=== PATIENT | male | born 1965 | race Caucasian/White ===

== ENCOUNTER 2017-02-26 14:18 | Emergency (ER) | payer BC, OTHER ==
[~2017-02-26] VITALS: Ht 185.4 cm; Wt 86.0 kg
[~2017-02-26 14:18] MED LIST: AMT/50 PO; COEN30CA6 PO; GLUC10007 PO; MULT-506 PO
[2017-02-26 14:20] VITALS: TEMP 36.5; Ht 185.4 cm; Wt 86.0 kg
[2017-02-26] MEDS ORDERED: OMEG10007 PO (14:37)
[2017-02-26] MEDS ORDERED: GINK40TA3 PO (14:37)
[2017-02-26] MEDS ORDERED: COEN1CAP17 PO (14:37)
[2017-02-26] MEDS ORDERED: OXYMETAZOLINE HCL 0.05% NA SPR 15 ML BTL ONE (14:44)
[2017-02-26 15:08] LABS: BASO % 0.8 %; BASO ABS # 0.04 K/uL (0-0.2); COMPLETE YES; EOS % 1.9 %; HEMATOCRIT 42.2 % (42-52); IG% 0.2 %; LYMPH % 27.4 %; LYMPH ABS # 1.43 K/uL (1.2-3.4); MEAN CELL VOLUME 87.4 fL (80-100); MEAN CORPUSCULAR HEMOGLOBIN 30.8 pg (25-34); MEAN CORPUSCULAR HGB CONC 35.3 g/dl (32-36); MEAN PLATELET VOLUME 11.4 fL (7.4-10.4); MONO % 7.7 %; PLATELET COUNT 162 K/uL (130-400); RED BLOOD COUNT 4.83 M/uL (4.7-6.1); WHITE BLOOD COUNT 5.21 K/uL (4.8-10.8)
[2017-02-26 15:29] LABS: BUN/CREATININE RATIO 20.6 (10-20); CALCIUM 9.1 mg/dl (8.5-10.1); CREATININE 0.94 mg/dl (0.60-1.40); POTASSIUM 4.3 mmol/L (3.5-5.1)
[2017-02-26 16:22] VITALS: BP 135/87; PULSE 59; O2SAT 98
--- NOTE | 2017-02-26 17:19 | EMERGENCY ROOM VISIT NOTE ---
History Report prepared by Mariza: Tamica Ríos Under the Supervision of: Dr. Pebbles White M.D. First contact with patient: 14:34 Chief Complaint: NOSE BLEED (MINOR) Stated Complaint: NOSE BLEED History of Present Illness The patient is a 51 year old male who presents to the Emergency Room with complaints of intermittent epistaxis for the past 48 hours. When the nose bleed starts, it bleeds for about 2 hours at a time. He has been passing blood clots through his mouth. He went to a walk-in clinic where they removed a clot the size of a 50 cent piece. He has had several of those over the past 2 days. The doctor said that it might be a posterior bleed. He takes baby aspirin 3 days a week. He is not on hypertension medications. Source of History: patient Onset: 48 hours ago Position: nose Quality: other (bleed) Timing: intermittent Review of Systems See HPI for pertinent positives & negatives. A total of 10 systems reviewed and were otherwise negative. Past Medical & Surgical denies Family History No pertinent family history reported. Social History Smoking Status: Never Smoker Alcohol Use: occasionally Drug Use: none Marital Status: Housing Status: lives with family Occupation Status: employed Current/Historical Medications Scheduled Amitriptyline HCl (Amitriptyline HCl), 50 MG PO HS Coenzyme Q10 (Ubidecarenone) (Co Q 10), 100 MG PO 3XWK Fish Oil (Shelley-3), 1 CAP PO 3XWK Ginkgo Biloba (Ginkoba), 1 TAB PO 3XWK Glucosamine Sulfate (Glucosamine), Unknown Dose PO DAILY Multivitamin (Multivitamin), 1 TAB PO 3XWK Allergies Coded Allergies: No Known Allergies (Unverified , 02/26/17) Physical Exam Vital Signs Date Time Temp Pulse Resp B/P Pulse Ox O2 Delivery O2 Flow Rate FiO2 02/26/17 16:22 59 16 135/87 98 02/26/17 14:20 36.5 66 18 154/89 99 Room Air Physical Exam Vital signs reviewed. General: Well-appearing, in no significant distress. HEENT: No scleral icterus, PERRLA, neck supple. Atraumatic. Clot coming from the right naris. No posterior oropharyngeal blood. Cardiovascular: Regular rate and rhythm, no extra sounds. Pulmonary: Clear to auscultation bilaterally, normal work of breathing. Abdomen: Soft, nontender, nondistended, positive bowel sounds. Musculoskeletal: Atraumatic, no peripheral edema. Neurologic: Patient awake alert and oriented x 3, full strength in all 4 extremities. Cranial nerves 2 through 12 grossly intact. Skin: Warm, dry, no rash Medical Decision & Procedures Laboratory Results 02/26/17 14:58 Red Blood Count 4.83, Mean Corpuscular Volume 87.4, Mean Corpuscular Hemoglobin 30.8, Mean Corpuscular Hemoglobin Concent 35.3, Mean Platelet Volume 11.4, Neutrophils (%) (Auto) 62.0, Lymphocytes (%) (Auto) 27.4, Monocytes (%) (Auto) 7.7, Eosinophils (%) (Auto) 1.9, Basophils (%) (Auto) 0.8, Neutrophils # (Auto) 3.23, Lymphocytes # (Auto) 1.43, Monocytes # (Auto) 0.40, Eosinophils # (Auto) 0.10, Basophils # (Auto) 0.04 02/26/17 14:58 Test 02/26/17 14:58 White Blood Count 5.21 K/uL (4.8-10.8) Red Blood Count 4.83 M/uL (4.7-6.1) Hemoglobin 14.9 g/dL (14.0-18.0) Hematocrit 42.2 % (42-52) Mean Corpuscular Volume 87.4 fL (80-100) Mean Corpuscular Hemoglobin 30.8 pg (25-34) Mean Corpuscular Hemoglobin Concent 35.3 g/dl (32-36) Platelet Count 162 K/uL (130-400) Mean Platelet Volume 11.4 fL (7.4-10.4) Neutrophils (%) (Auto) 62.0 % Lymphocytes (%) (Auto) 27.4 % Monocytes (%) (Auto) 7.7 % Eosinophils (%) (Auto) 1.9 % Basophils (%) (Auto) 0.8 % Neutrophils # (Auto) 3.23 K/uL (1.4-6.5) Lymphocytes # (Auto) 1.43 K/uL (1.2-3.4) Monocytes # (Auto) 0.40 K/uL (0.11-0.59) Eosinophils # (Auto) 0.10 K/uL (0-0.5) Basophils # (Auto) 0.04 K/uL (0-0.2) RDW Standard Deviation 40.6 fL (36.4-46.3) RDW Coefficient of Variation 12.6 % (11.5-14.5) Immature Granulocyte % (Auto) 0.2 % Immature Granulocyte # (Auto) 0.01 K/uL (0.00-0.02) Anion Gap 5.0 mmol/L (3-11) Est Creatinine Clear Calc Drug Dose 106.2 ml/min Estimated GFR () 109.1 Estimated GFR (Non- 94.2 BUN/Creatinine Ratio 20.6 (10-20) Calcium Level 9.1 mg/dl (8.5-10.1) Laboratory results per my review. ED Course 1436: Past medical records reviewed. The patient was evaluated in room C9. A complete history and physical examination was performed. 1444: Afrin 0.05% Nasal [place] 75 sprays. 1610: Upon reevaluation, the patient appeared to have improvement of his symptoms. I discussed findings with him. He verbalized agreement of the treatment plan. He was discharged home. Medical Decision Differential diagnosis: Etiologies such as anterior epistaxis, coagulopathy, traumatic injury, fracture , septal hematoma, posterior epistaxis as well as other pathologies were entertained. This patient was evaluated and appeared to be in no significant distress. Patient did seem to be somewhat anxious about the situation. He is noted to be slightly hypertensive. Patient was asked to gently blow his nose. Afrin nasal spray was applied with a clamp. After 30-40 minutes, the Clamp was removed. The bleeding did subside. Patient's laboratory work is fairly unrevealing. CBC shows a normal H&H as well as platelet count. Patient was informed of the findings. He was given instructions regarding epistaxis. He was discharged with a nasal clamp and Afrin nasal spray. He was advised to stop taking the baby aspirin. He will follow-up with his physician this week for reevaluation. He will return to the ER for worsening of symptoms or any medical concerns. Impression Primary Impression: Epistaxis Scribe Attestation The scribe's documentation has been prepared under my direction and personally reviewed by me in its entirety. I confirm that the note above accurately reflects all work, treatment, procedures, and medical decision making performed by me. Departure Information Dispostion Home / Self-Care Referrals Oscar Pacheco D.O. (PCP) Forms HOME CARE DOCUMENTATION FORM, IMPORTANT VISIT INFORMATION, WORK / SCHOOL INSTRUCTIONS Patient Instructions My Melba Severino [facility], Nosebleeds - [facility] Additional Instructions Diagnosis: Epistaxis Stop your aspirin. Avoid scratching, rubbing, picking, or blowing your nose. The germ drier your nasal passages the more likely they are to bleed. The following two products are available [id number] at most drug stores/pharmacies: [place] nasal spray or similar generic saline spray to keep the nose moist 3 to 4 times a day or Apply [place] gel 2-3 times daily to the nostrils to keep them moist. If bleeding recurs , gently blowing your nose and use 3-4 sprays of Afrin in each nostril. Apply direct pressure for an uninterrupted 20 minutes. On and off pressure is much less effective because it will disturb the clots that are forming. If the bleeding is still a problem after 20 minutes or is so heavy despite the pressure return to the emergency department. Follow-up with your primary care physician in 2 to 3 days for a recheck of your current condition if problems persist.
== END 2017-02-26 16:23 | disposition home or self-care (01) ==
LOC: C.EDB 14:19 → C.EDC 16:23
DX: R04.0 Epistaxis (principal)

== ENCOUNTER 2025-11-10 09:21 | Observation (INO) ==
--- NOTE | 2025-10-09 10:06 | PAT Medication Instructions ---
Medication Instructions Date of Service October 09, 2025 Home Medications Medication Instructions Recorded betamethasone valerate 0.1 % 1 applic topical BID PRN erythema 07/29/25 topical ointment #15 grams turmeric 100 mg-gayatri 150 mg-olive 50 mg-oreg 150 mg-capryl capsule 1 cap PO QPM hydrocortisone 2.5 % topical cream 1 applic topical BID PRN rosuvastatin 5 mg tablet (Crestor) 5 mg PO HS coenzyme Q10 100 mg capsule (Co Q-10) 100 mg PO HS feverfew 380 mg capsule 380 mg PO HS ginkgo biloba 120 mg tablet 120 mg PO HS glucosamine sulf dipot chlr,msm,chond 550 mg-C 30 mg-kike 1 mg capsule (Glucosamine Chondroitin) 1 cap PO QPM multivitamin 1 tab PO HS omega-3 fatty acids 1,200 mg PO QPM betamethasone valerate 0.1 % topical ointment 1 applic topical BID PRN Fruit Supplement 1 dose PO HS Vegetable Supplement 1 tab PO HS Zn-pyg lwrp-kxatgf-nxu palmet capsule 1 cap PO HS magnesium glycinate 400 mg PO HS STOP taking 2 weeks before surgery (or as soon as possible if surgery is within 2 weeks) turmeric 100 mg-gayatri 150 mg-olive 50 mg-oreg 150 mg-capryl capsule 1 cap PO QPM coenzyme Q10 100 mg capsule (Co Q-10) 100 mg PO HS feverfew 380 mg capsule 380 mg PO HS ginkgo biloba 120 mg tablet 120 mg PO HS glucosamine sulf dipot chlr,msm,chond 550 mg-C 30 mg-kike 1 mg capsule (Glucosamine Chondroitin) 1 cap PO QPM omega-3 fatty acids 1,200 mg PO QPM Fruit Supplement 1 dose PO HS Vegetable Supplement 1 tab PO HS Zn-pyg mqov-bwmroe-ttq palmet capsule 1 cap PO HS STOP taking 24 hours before surgery hydrocortisone 2.5 % topical cream 1 applic topical BID PRN betamethasone valerate 0.1 % topical ointment 1 applic topical BID PRN Take evening before surgery rosuvastatin 5 mg tablet (Crestor) 5 mg PO HS multivitamin 1 tab PO HS magnesium glycinate 400 mg PO HS Other Notes NOTHING TO EAT OR DRINK AFTER MIDNIGHT. If you have any questions please call us at [phone] or [phone] or [phone] or [phone]
--- NOTE | 2025-10-20 13:56 | Anesthesiology Consultation ---
Date of Service October 20, 2025 Assessment & Plan (1) Encounter for pre-operative examination: - Infectious disease screening: Per assessment on 10/20/25- No known recent infectious disease contacts or current infectious disease symptoms. - Awaiting upcoming sleep study report ([facility], 10/27). Patient is otherwise acceptable risk for surgery. Chart Review Chart Review: Patient seen in Pre Admission Testing Teaching & Discussion Pre-Anesthesia Teaching/Discussion Notes: Instructed NPO after midnight before surgery,except medications with 15 cc of water. Medication instructions provided according to the PAT guidelines. History Surgery Operation Date: 11/10/25 07:15 Proposed Procedures p Robotic Assisted Bilateral Total Knee Arthroplasty - Nabor Lorenzana, Height/Weight Height: 6 ft 1 in Weight: 85 kg Allergies Allergy/AdvReac Type Severity Reaction Status Date / Time No Known Allergies Allergy Verified 10/08/25 11:51 Medications Home Medications Medication Instructions Recorded Confirmed Last Taken turmeric 100 mg-gayatri 150 1 cap PO QPM 10/17/22 10/08/25 Unknown mg-olive 50 mg-oreg 150 mg-capryl capsule hydrocortisone 2.5 % topical cream 1 applic topical BID PRN Skin 10/19/23 10/08/25 Unknown Irritation rosuvastatin 5 mg tablet (Crestor) 5 mg PO HS 10/19/23 10/08/25 Unknown coenzyme Q10 100 mg capsule (Co 100 mg PO HS 03/04/24 10/08/25 Unknown Q-10) feverfew 380 mg capsule 380 mg PO HS 03/04/24 10/08/25 Unknown ginkgo biloba 120 mg tablet 120 mg PO HS 03/04/24 10/08/25 Unknown glucosamine sulf dipot 1 cap PO QPM 03/04/24 10/08/25 Unknown chlr,msm,chond 550 mg-C 30 mg-kike 1 mg capsule (Glucosamine Chondroitin) multivitamin 1 tab PO HS 03/04/24 10/08/25 Unknown omega-3 fatty acids 1,200 mg PO QPM 03/04/24 10/08/25 Unknown betamethasone valerate 0.1 % 1 applic topical BID PRN erythema 07/29/25 10/08/25 Unknown topical ointment #15 grams Fruit Supplement 1 dose PO HS 10/08/25 10/08/25 Unknown Vegetable Supplement 1 tab PO HS 10/08/25 10/08/25 Unknown Zn-pyg mrbo-vwahsm-ywp palmet 1 cap PO HS 10/08/25 10/08/25 Unknown capsule magnesium glycinate 400 mg PO HS 10/08/25 10/08/25 Unknown Past Medical History Medical History (Updated 10/20/25 @ 14:38 by Lotus Jenkins) Anxiety Borderline hypertension Monitors, no meds Cardiac murmur No murmur noted at PCP visit 02/25/25 and PAT visit 10/20/25 History of abnormal electrocardiogram 2013 [facility] EKG with ST elevation with early repolarization, pericarditis or injury (ST elevation noted on remote 2009 [facility] ER reports- 2009 stress test unremarkable) History of skin cancer s/p excision, "no issues" Hyperlipidemia Controlled with medication Insomnia Osteoarthritis Suspected sleep apnea [facility] Sleep study scheduled 10/27/25 Exercise / Class Metabolic Activity II 4-5 Yardwork/Stairs/Walk up hill (one FS: No CP, no SOB) Past Family History Family History Other No family history of adverse response to anesthesia Past Surgical History Surgical History Hx of anterior cruciate ligament tear reconstruction Right knee Hx of colonoscopy Nausea after anesthesia Severe PONV with ACL surgery S/P left knee arthroscopy (2022) [place] teeth extracted Past Anesthesia History No Hx of Anesthesia Complications and No Family Hx of Anesthesia Complications History of PONV History of PONV and Hx of Motion Sickness (Situational) Social History Smoking Status: Never smoker Do You Dip or Chew Tobacco: No Hx Alcohol Use: Yes alcohol intake frequency: other (Socially- "light drinker") Hx Substance Use: No substance use type: does not use Review of Systems Patient denies chest pain, shortness of breath, dyspnea on exertion, fever, chills, cough, wheezing, palpitations. Physical Exam Vital Signs BP 115/76 P 66 TEMP 98.5 SP02 95%RA RESP 16 Physical Full cervical extension range of motion. Full TMJ range of motion. TMD 3 finger breaths Mallampati Score III Dentition: intact, + caps/crowns Lungs: clear throughout to auscultation Cardiac: regular rate and rhythm, no murmurs noted Spine: normal Carotid arteries: negative bruit Extremities: no LE edema Lab Results Anesthesia Preop Results Results Anesthesia Widget: WBC 7.65 K/ul (4.8-10.8) 10/20/25 Hgb 14.7 g/dL (14.0-18.0) 10/20/25 Hct 43.6 % (42.0-52.0) 10/20/25 Plt 182 K/uL (130-400) 10/20/25 Na 138 mmol/L (136-145) 10/20/25 K 4.2 mmol/L (3.5-5.1) 10/20/25 Cl 102 mmol/L (98-107) 10/20/25 CO2 30 mmol/L (21-32) 10/20/25 BUN 21 mg/dl (6-23) 10/20/25 Creat 0.98 mg/dl (0.6-1.4) 10/20/25 Glucose Level 98 mg/dl (70-99(Fasting)) 10/20/25 PT 10.8 Seconds (9.0-12.0) 10/20/25 PTT 26 Seconds (21-31) 10/20/25 INR 1.0 (0.9-1.1) 10/20/25 Blood Type A Positive 10/20/25 Antibody Screen NEGATIVE 10/20/25 Testing Electrocardiogram Date: 10/20/25 NSR at 60bpm. RSR or QR pattern in V1 suggests RVCD. Minimal voltage criteria for LVH, may be normal variant (Sokolow-Guevara). Septal infarct, age undetermined. No significant change compared to 11/09/2014 per block cutter comparison. Chest X-Ray Date: 10/20/25 FINDINGS: Cardiomediastinal and hilar silhouettes are within normal limits. No pneumothorax, pleural effusion, airspace consolidation or pulmonary edema. Mild levoscoliosis of the lower thoracic spine. The bones appear grossly intact. IMPRESSION: No acute process.
--- NOTE | 2025-11-06 07:43 | History & Physical Report ---
Date of Service November 06, 2025 Assessment & Plan (1) Degenerative arthritis of knee, bilateral: We will proceed with bilateral total knee arthroplasties. Postoperatively, he will be started on aspirin for DVT prophylaxis and kept overnight in the hospital for postop medical management. He plans to use the energy physical therapy after discharge. History of Present Illness Chief Complaint: Osteoarthritis bilateral knees. Primary Care Provider: Oscar PachecoDO De Los Santos is a pleasant 59-year-old male who has been dealing with chronic worsening bilateral knee pain. He had right ACL reconstruction done about 20 years ago. He has been receiving injections of his knees and PRP. He has done extensive conservative treatment. X-rays have shown end-stage medial compartmental arthritis. After failing conservative treatment, he has elected to proceed with bilateral total knee arthroplasty. Allergies Allergy/AdvReac Type Severity Reaction Status Date / Time No Known Allergies Allergy Verified 11/03/25 09:39 Home Medications Medication Instructions Recorded Confirmed Type turmeric 100 mg-gayatri 150 1 cap PO QPM 10/17/22 11/03/25 History mg-olive 50 mg-oreg 150 mg-capryl capsule hydrocortisone 2.5 % topical cream 1 applic topical BID PRN Skin 10/19/23 11/03/25 History Irritation rosuvastatin 5 mg tablet (Crestor) 5 mg PO HS 10/19/23 11/03/25 History coenzyme Q10 100 mg capsule (Co 100 mg PO HS 03/04/24 11/03/25 History Q-10) feverfew 380 mg capsule 380 mg PO HS 03/04/24 11/03/25 History ginkgo biloba 120 mg tablet 120 mg PO HS 03/04/24 11/03/25 History glucosamine sulf dipot 1 cap PO QPM 03/04/24 11/03/25 History chlr,msm,chond 550 mg-C 30 mg-kike 1 mg capsule (Glucosamine Chondroitin) multivitamin 1 tab PO HS 03/04/24 11/03/25 History omega-3 fatty acids 1,200 mg PO QPM 03/04/24 11/03/25 History betamethasone valerate 0.1 % 1 applic topical BID PRN erythema 07/29/25 11/03/25 Rx topical ointment #15 grams Fruit Supplement 1 dose PO HS 10/08/25 11/03/25 History Vegetable Supplement 1 tab PO HS 10/08/25 11/03/25 History Zn-pyg ivng-stpqqq-wgc palmet 1 cap PO HS 10/08/25 11/03/25 History capsule magnesium glycinate 400 mg PO HS 10/08/25 11/03/25 History Auto Titrating CPAP See Rx Instructions .Route 11/03/25 11/03/25 Rx .COMPLEX #1 ea Creatine PO DAILY 11/03/25 11/03/25 History Past Med/Surg History Problem List Encounter for pre-operative examination Poor sleep hygiene Snoring PLMD (periodic limb movement disorder) Psychophysiologic insomnia Erythema Dysuria Degenerative arthritis of knee, bilateral Medical History History of abnormal electrocardiogram [address] [facility] EKG with ST elevation with early repolarization, pericarditis or injury (ST elevation noted on remote 2009 [facility] ER reports- 2009 stress test unremarkable) Cardiac murmur No murmur noted at PCP visit 02/25/25 and PAT visit 10/20/25 Insomnia Suspected sleep apnea [place] Sleep study scheduled 10/27/25 Borderline hypertension Monitors, no meds Osteoarthritis History of skin cancer s/p excision, "no issues" Anxiety Hyperlipidemia Controlled with medication Surgical History S/P left knee arthroscopy (2022) Nausea after anesthesia Severe PONV with ACL surgery Hx of anterior cruciate ligament tear reconstruction Right knee Hx of colonoscopy [place] teeth extracted Family History Other No family history of adverse response to anesthesia Social History Smoking Status: Never smoker Second Hand Exposure: Yes (hx growing up); Do You Dip or Chew Tobacco: No; Hx Alcohol Use: Yes Hx Substance Use: No Preferred Language: Macedonian Communication Ability: Effective Home Health Lvn Required: No Beliefs That Will Affect Care: None Current Living Situation: Spouse Feels Safe at Home: Yes Assistive Devices: Glasses Review of Systems All systems reviewed & are unremarkable except as noted in HPI & below. Physical Exam On physical exam of the knees, he has a slight varus deformity. Tenderness palpation of the distal medial femoral condyle and over the medial joint lines.. Constitutional WD/WN, vitals as above Eyes PERRL, conjunctivae normal, anicteric sclerae ENMT external ear and nose normal, oropharynx normal Neck trachea midline, no thyromegaly Respiratory normal respiratory effort Cardiovascular RRR, no murmur, no edema Gastrointestinal (Abdomen) normal bowel sounds, soft, nontender, no hepatosplenomegaly Psychiatric A+Ox3, euthymic affect Results & Data Results & Data Laboratory Results . Diagnostic Findings . PG Care Time/CCT Total # of Minutes Spent Total Time Spent with Patient: Total time spent is greater than 50% in coordination of care (as documented) at patient's floor/unit and/or counseling patient: Coding Level of Care Code None Diagnoses Degenerative arthritis of knee, bilateral M17.0
[~2025-11-10 09:21] MED LIST changes: -AMT/50 PO; +BUPIVACAINE 0.5 % 5 MG/1 ML PF 10ML VIAL ONE; -COEN30CA6 PO; -GLUC10007 PO; -MULT-506 PO; +ROPIVACAINE 0.5% 5 MG/ML 30 ML VIAL ONE
[2025-11-10] MEDS ORDERED: PROPOFOL IV EMULSION 10 MG/ML 20 ML VIAL IV ONE ×2 (09:32→13:40)
[2025-11-10] MEDS ORDERED: ONDANSETRON INJ 2 MG/ML 2 ML VIAL ONE (09:32)
[2025-11-10] MEDS ORDERED: LIDOCAINE 2% 2 ML VIAL/AMP(20MG/ML) INFIL ONE (09:32)
[2025-11-10] MEDS ORDERED: MIDAZOLAM HCL 1 MG/ML 2ML VIAL ONE ×2 (09:32→09:33)
[2025-11-10] MEDS: LR 60ML/HR IV SCH (09:49)
[2025-11-10] MEDS: LR 15ML/HR IV SCH (10:02)
[2025-11-10] MEDS ORDERED: PHENYLEPHRINE HCL 10 MG/ML VIAL ONE (10:03)
--- NOTE | 2025-11-10 10:15 | History & Physical Bridge Note ---
Date of Service November 10, 2025 History & Physical Bridge Note I have examined the patient, reviewed the History & Physical and in the interval since the performance of the History & Physical I have noted the following changes of clinical significance: no changes noted
[2025-11-10] MEDS: GABAPENTIN 600 MG DOSE PO SCH (10:20)
[2025-11-10] MEDS: FAMOTIDINE 20 MG TAB PO SCH (10:20)
[2025-11-10] MEDS: dexAMETHasone**PF** 10 MG/ML VIAL IV SCH (10:20)
[2025-11-10] MEDS: ACETAMINOPHEN 500 MG TAB PO SCH ×2 (10:20→22:17)
[2025-11-10] MEDS: SCOPOLAMINE 1 MG/72 HR TDSY PATCH TD ONE ×2 (10:34→10:35)
[2025-11-10] MEDS ORDERED: ATROPINE SULFATE 0.1 MG/ML 10ML SYR IV PRN (10:38)
[2025-11-10] MEDS ORDERED: DROPERIDOL 5 MG/2 ML VIAL IV PRN (10:38)
[2025-11-10] MEDS: TRANEXAMIC ACID 1,000 MG **IV Pre-op IV SCH (10:42)
[2025-11-10] MEDS ORDERED: METOCLOPRAMIDE HCL INJ 5 MG/ML 2 ML VIAL ONE (11:26)
[2025-11-10] MEDS: ORTHO JOINT ANESTHETIC ONE (12:06)
[2025-11-10] MEDS: ROPIV 0.5% 246mg, Ketorolac 30mg, EPINEPHrine 0.5mg in NSS INFIL SCH (13:36)
--- NOTE | 2025-11-10 14:43 | XRay Report ---
TWO VIEWS LEFT KNEE CLINICAL HISTORY: Postoperative examination. FINDINGS: AP and crosstable lateral portable views of the left knee are obtained. A left knee arthrop lasty is in near anatomic alignment. No acute fracture is seen. Soft tissue tissue edema and subcutan eous gas around the knee are expected postsurgical changes. IMPRESSION: Expected postoperative changes status post left knee arthroplasty. No acute fracture is s een. ACT 112: Negative or not required by law. Electronically signed by: Simba Michaels M.D. 11/10/2025 2:42 PM
--- NOTE | 2025-11-10 14:45 | XRay Report ---
TWO VIEWS RIGHT KNEE CLINICAL HISTORY: Postoperative examination. FINDINGS: AP and crosstable lateral portable views of the right knee are obtained. A right knee arthr oplasty is in near anatomic alignment. No acute fracture is seen. Soft tissue edema and subcutaneous gas around the knee are expected postsurgical finding. A small plate is seen along the lateral rene x of the distal femoral metaphysis. There is atherosclerotic calcification of the popliteal artery. IMPRESSION: Expected postoperative changes status post right knee arthroplasty. No acute fracture is seen. ACT 112: Negative or not required by law. Electronically signed by: Simba Michaels M.D. 11/10/2025 2:43 PM
--- NOTE | 2025-11-10 15:32 | Operative Report ---
PG Post Operative Report Pre & Post Diagnosis Operation Date: 11/10/25 11:00 Pre-Op Diagnosis: Degenerative arthritis of knee, bilateral Post-Op Diagnosis: Degenerative arthritis of knee, bilateral I identified the patient and participated in the time-out.: Yes Procedure Operation Date: 11/10/25 11:00 Actual Procedures p Robotic Assisted Bilateral Total Knee Arthroplasty(Bilateral) - Nabor Lorenzana DO Surgeon Nabor Lorenzana DO [employer] Cutlet [employer] Daniel Sam PA-C Estimated Blood Loss 60 (1242 closing on left knee, 1335 closing on right knee) Findings Consistent with Post-Op Diagnosis Specimens Bilateral femoral and tibial bone Description of Procedure Implants used left knee: I used a [employer] Person[employer] total knee arthroplasty system with a size 11 standard PS femur, F tibia, and a size 10 CPS polyethylene bearing. All components were press-fit into place. [facility] for the above procedure. He was seen in the preoperative holding area and the operative extremity was identified and signed. he was given a preoperative antibiotic, TXA, a spinal anesthetic and an adductor nerve block. He was taken back to the operating room and laid on the table in supine position. He was given basic sedation. The operative knee was then prepped and draped in sterile fashion. A timeout was done, and the patient and the operative extremity was properly identified. A midline incision was made directly over the patella. Dissection was taken down to the extensor mechanism. A medial parapatellar arthrotomy was used. The medial retinaculum was released and the fat pad was mostly excised. The knee was flexed and the ACL, PCL, and meniscus were removed. The alignment of the knee replacement was assisted with a [employer] robotic knee. The femoral array was pinned in the distal femur and the tibial array was pinned using a percutaneous technique in the upper shaft of the tibia. The robot was appropriately calibrated and the structure of the knee was mapped out. The components were then manipulated on the screen to account for any malalignment and to assist in gap balancing. Once I was happy with the placement of the components on the screen, a distal femoral cutting guide was brought in place. The distal femur was then resected. The femur measured to be a size 11. A 4-in-1 cutting block was then put into place by the robot and 2 peg holes were drilled. The 4-in-1 cutting block was then impacted into place and anterior, posterior, and chamfer cuts were made. The cutting block was then brought down to the tibia and pinned into place. The proximal tibia was then resected. The posterior aspect of the knee was then opened up and any additional meniscus fragments and osteophytes were removed. The tibia measured to be a size F. The tibial plate was then placed in the appropriate rotation and the tibia was drilled and punched. Trial components were then placed. A size 10 CPS polyethylene insert was then trialed. The knee was brought through a full range of motion and felt to be stable. Trial components were then removed. The surrounding soft tissues were injected with 100 cc of an orthopedic pain control cocktail. All components were then press-fit into place. The final polyethylene insert was then snapped into place. The tourniquet was deflated. Hemostasis was obtained. An Irrisept lavage was then done for 3 minutes. The joint was then irrigated with normal saline solution. The medial parapatellar arthrotomy was then closed with #1 Vicryl suture. The skin was closed with 2-0 Vicryl, 3-0V lock suture, and Buxton Zipline. Implants used right knee: I used a [employer] total knee arthroplasty system with a size 11 standard PS femur, F tibia, and a size 10 CPS polyethylene bearing. All components were press-fit into place. A midline incision was made directly over the patella. Dissection was taken down to the extensor mechanism. A medial parapatellar arthrotomy was used. The medial retinaculum was released and the fat pad was mostly excised. The knee was flexed and the ACL, PCL, and meniscus were removed. The alignment of the knee replacement was assisted with a [employer] robotic knee. The femoral array was pinned in the distal femur and the tibial array was pinned using a percutaneous technique in the upper shaft of the tibia. The robot was appropriately calibrated and the structure of the knee was mapped out. The components were then manipulated on the screen to account for any malalignment and to assist in gap balancing. Once I was happy with the placement of the components on the screen, a distal femoral cutting guide was brought in place. The distal femur was then resected. The femur measured to be a size 11. A 4-in-1 cutting block was then put into place by the robot and 2 peg holes were drilled. The 4-in-1 cutting block was then impacted into place and anterior, posterior, and chamfer cuts were made. The cutting block was then brought down to the tibia and pinned into place. The proximal tibia was then resected. The posterior aspect of the knee was then opened up and any additional meniscus fragments and osteophytes were removed. The tibia measured to be a size F. The tibial plate was then placed in the appropriate rotation and the tibia was drilled and punched. Trial components were then placed. A size 10 CPS polyethylene insert was then trialed. The knee was brought through a full range of motion and felt to be stable. Trial components were then removed. The surrounding soft tissues were injected with 100 cc of an orthopedic pain control cocktail. All components were then press-fit into place. The final polyethylene insert was then snapped into place. The tourniquet was deflated. Hemostasis was obtained. An Irrisept lavage was then done for 3 minutes. The joint was then irrigated with normal saline solution. The medial parapatellar arthrotomy was then closed with #1 Vicryl suture. The skin was closed with 2-0 Vicryl, 3-0V lock suture, and Buxton Zipline. A soft compressive dressing was placed. He was then transferred to a hospital bed and taken to the postanesthesia care unit in stable condition. He tolerated the procedure well. Daniel Sam PA-C, was present for the entire procedure. He was critical for patient positioning, prepping, draping, retraction exposure, wound closure and application of sterile dressing. I attest to the content of the Intraoperative Record and any orders documented therein. Any exceptions are noted below.
[2025-11-10] MEDS ORDERED: METOCLOPRAMIDE HCL INJ 5 MG/ML 2 ML VIAL IV PRN (16:15)
[2025-11-10] MEDS ORDERED: NALOXONE HCL 0.4 MG/1 ML VIAL/CARP IV PRN (16:15)
[2025-11-10] MEDS ORDERED: MAGNESIUM HYDROXIDE SUSP 30 ML UDC PO PRN (16:15)
[2025-11-10] MEDS ORDERED: ONDANSETRON INJ 2 MG/ML 2 ML VIAL IV PRN (16:15)
--- NOTE | 2025-11-10 16:38 | Anesthesiology Progress Note ---
Date of Service November 10, 2025 Anesthesia Post Procedure Vital Signs Vital Signs: Temp Pulse Pulse Resp BP Pulse Ox O2 Del Method 11/10/25 16:15 36.6 C 67 16 105/64 100 Room Air 11/10/25 15:15 69 16 115/64 96 Room Air 11/10/25 15:00 67 16 118/67 96 Room Air 11/10/25 14:45 36.3 C L 64 16 109/76 95 Room Air 11/10/25 14:30 62 14 114/66 95 Room Air 11/10/25 14:20 62 20 115/70 95 Room Air 11/10/25 14:10 36.1 C L 65 20 116/72 97 Oxymask 11/10/25 09:40 36.8 C 58 L 20 169/99 H 97 Room Air O2 Flow Rate 11/10/25 16:15 11/10/25 15:15 11/10/25 15:00 11/10/25 14:45 11/10/25 14:30 11/10/25 14:20 11/10/25 14:10 5 11/10/25 09:40 Pain Intensity Bilateral Knee: Pain Intensity: 3 Notes Mental Status: alert / awake / arousable Patient Amnestic to Procedure: Yes Nausea / Vomiting: adequately controlled Pain: adequately controlled Airway Patency, RR, SpO2: stable & adequate BP & HR: stable & adequate Hydration State: stable & adequate Neuraxial Anesthesia: was administered and sensory block is resolving Anesthetic Complications: no major complications apparent
[2025-11-10] MEDS: KETOROLAC TROMETHAMINE 15 MG/ML VIAL IV SCH (16:47)
[2025-11-10] MEDS: SODIUM CHLORIDE 0.9% 1,000 ML IV SCH (18:32)
[2025-11-10] MEDS: CHECK SCOPOLAMINE PATCH PLACEMENT SCH (19:05)
[2025-11-10] MEDS: ASPIRIN 81 MG ECTAB PO SCH (20:07)
[2025-11-10] MEDS: HYDROmorphone INJ 0.5 MG/0.5 ML SYR IV PRN (20:08)
[2025-11-10] MEDS: ROSUVASTATIN CALCIUM 5 MG TAB PO SCH (20:08)
[2025-11-10] MEDS: SENNA 8.6 MG TAB PO SCH (20:08)
[2025-11-10] MEDS: DOCUSATE SODIUM 100 MG CAP PO SCH (20:08)
[2025-11-11] MEDS: MULTIVITAMIN TAB PO SCH (07:57)
--- NOTE | 2025-11-11 08:26 | Orthopedic Progress Note ---
Date of Service November 11, 2025 Assessment & Plan (1) Status post bilateral knee replacements: * Continue Current Treatment * Disposition: home * Daily treatment: Physical Therapy/ Occupational Therapy per protocol * Weight bearing status: WBAT * Continue to monitor for ABLA * Pain control * DVT prophylaxis, ASA * Office/hospital f/u 2 weeks for progress check and staple/suture removal * Plan for discharge today pending PT/OT clearance Subjective . Active Problems: S/p b/l TKA POD 1 60 y/o male s/p b/l TKA. Doing well overall, pain managed and improved function. Denies fever/chills, chest pain/SOB, nausea/vomiting. Otherwise no complaints. Review of Systems All systems reviewed & are unremarkable except as noted in HPI & below. Physical Exam . * General: Alert and oriented, no acute distress * Constitutional: well-developed, well-nourished. * Respiratory: Normal respiratory effort, no distress * Gastrointestinal: No tenderness to palpation, no rigidity or guarding. * Skin: No rash or lesion. * Neurologic: Grossly normal * Musculoskeletal: bilateral knee surgical dressing CDI, not removed for exam. Otherwise no obvious deformity or overlying skin changes RLE. Diffuse TTP distal thigh and knee region. Otherwise no specific tenderness of proximal thigh, lower leg, foot/ankle. AROM knee flexion 90 R 90 L degrees. AROM foot/ankle intact. Sensation intact plantar/dorsal foot. Brisk capillary refill. Results & Data Results & Data Laboratory Results . Diagnostic Findings . Knee X-Ray 11/10/25 14:15 TWO VIEWS RIGHT KNEE CLINICAL HISTORY: Postoperative examination. FINDINGS: AP and crosstable lateral portable views of the right knee are obtained. A right knee arthroplasty is in near anatomic alignment. No acute fracture is seen. Soft tissue edema and subcutaneous gas around the knee are expected postsurgical finding. A small plate is seen along the lateral cortex of the distal femoral metaphysis. There is atherosclerotic calcification of the p opliteal artery. IMPRESSION: Expected postoperative changes status post right knee arthroplasty. No acute fracture is seen. ACT 112: Negative or not required by law. Electronically signed by: Simba Michaels M.D. 11/10/2025 2:43 PM Knee X-Ray 11/10/25 14:15 TWO VIEWS LEFT KNEE CLINICAL HISTORY: Postoperative examination. FINDINGS: AP and crosstable lateral portable views of the left knee are obtained. A left knee arthroplasty is in near anatomic alignment. No acute fracture is seen. Soft tissue tissue edema and subcutaneous gas around the knee are expected postsurgical changes. IMPRESSION: Expected postoperative changes status post left knee arthroplasty. No acute fracture is seen. ACT 112: Negative or not required by law. Electronically signed by: Simba Michaels M.D. 11/10/2025 2:42 PM PG Care Time/CCT Total # of Minutes Spent Total Time Spent with Patient: Total time spent is greater than 50% in coordination of care (as documented) at patient's floor/unit and/or counseling patient: Coding Level of Care Code 90119 Post Operative Follow-Up Diagnoses Status post bilateral knee replacements Z96.653
[2025-11-11 12:31] VITALS: BP 108/64; PULSE 67; RESP 18; TEMP 99.1; O2SAT 93
[2025-11-13] MEDS ORDERED: REMOVE TRANSDERM-SCOP PATCH ONE (06:00)
== END 2025-11-11 13:36 | disposition home health service (06) ==
LOC: 3E 09:21 → ASU 09:21